=== PATIENT | male | born 1965 | race African-American/Black ===

== ENCOUNTER 2021-01-01 19:41 | Inpatient (IN) | payer BC, OTHER ==
[~2021-01-01] VITALS: Ht 177.8 cm; Wt 91.3 kg
[2021-01-01] MEDS ORDERED: METHYLPREDNISOLONE SOD SUCC 125 MG/2 ML VIAL IV STA (19:50)
[2021-01-01] MEDS ORDERED: SODIUM CHLORIDE 0.9% 1000ML BAG (SEPSIS BOLUS) IV ONE (20:00)
[2021-01-01] MEDS ORDERED: CEFTRIAXONE 1 G PREMIX 50 ML IV ONE (20:00)
[2021-01-01] MEDS ORDERED: MAGNESIUM 2 G PREMIX 50 ML IV ONE (20:00)
[2021-01-01] MEDS ORDERED: AZITHROMYCIN 500 MG in DEXT 5% WATER 250 ML IV ONE (20:00)
[2021-01-01] MEDS: IPRATROPIUM BROMIDE (0.02%) 0.5MG/2.5ML NEB HHN STA ×2 (20:07→20:08)
[2021-01-01] MEDS: ALBUTEROL (0.083%) 2.5MG/3ML NEB HHN STA ×2 (20:07→20:08)
[2021-01-01 20:39] LABS: BASOPHILS % 0.7 % (0.0-2.0); EOSINOPHILS % 0.3 % (0.0-5.0); HEMATOCRIT. 44.6 % (42.0-52.0); HEMOGLOBIN. 14.4 g/dL (14.0-18.0); LYMPHOCYTES % 13.9 % (20.0-50.0); MEAN CORPUSCULAR HEMOGLOBIN 29.3 pg (28.0-32.0); MEAN CORPUSCULAR VOLUME 90.8 fL (80.0-94.0); MEAN PLATELET VOLUME 9.9 fl (7.4-10.4); MONOCYTES % 8.3 % (2.0-8.0); NEUTROPHILS % 76.8 % (40.0-76.0); PLATELET 260 x1000/uL (130-400); RED BLOOD CELL COUNT 4.91 mill/uL (4.7-6.1); RED CELL DISTRIBUTION WIDTH 13.3 % (11.6-14.6)
[2021-01-01 20:47] LABS: CHLORIDE 103 mEq/L (98-107); D-DIMER 0.2 mg/L FEU (<0.50); INR 0.9
[2021-01-01] MEDS ORDERED: LORAZEPAM 2MG/ML CPJ IV ONE (21:15)
[2021-01-01 21:26] LABS: BG BASE EXCESS -2.3 mmol/L (-2.0-2.0); BG CARBOXYHEMOGLOBIN 0.7 % (0.5-1.5); BG DEOXYHEMOGLOBIN 1.5 % (0.0-5.0); BG FRACTION INSPIRED OXYGEN 100; BG HCO3 ACT 23.1 mmol/L (22.0-26.0); BG METHEMOGLOBIN 0.2 % (0.0-1.5); BG OXYGEN SATURATION 98.5 % (92.0-98.5); BG OXYHEMOGLOBIN 97.6 % (94.0-97.0); BG PCO2 42.1 mmHg (35.0-45.0); BG PH 7.357 (7.350-7.450); BG PO2 123.3 mmHg (75.0-100.0); BG SAMPLE SITE RIGHT RADIAL; BG TOTAL HEMOGLOBIN 14.8 g/dL (12.0-18.0); BG VENT MODE MASK - CPAP
[2021-01-01] MEDS ORDERED: LIDOCAINE HCL 1% 20ML VIAL (Pyxis) INJ INFIL ONE (21:45)
[2021-01-01] MEDS ORDERED: MORPHINE SULFATE 4 MG/ML CPJ (NOT FOR IM USE) IV STA (21:55)
[2021-01-01] MEDS ORDERED: ONDANSETRON HCL 4MG/2ML INJ IV STA (21:55)
[2021-01-01 22:16] LABS: CLARITY URINE CLEAR (CLEAR); COLOR URINE YELLOW (YELLOW); KETONES URINE NEGATIVE (NEGATIVE); LEUKOCYTE ESTERASE URINE NEGATIVE (NEGATIVE); NITRITE URINE NEGATIVE (NEGATIVE); OCCULT BLOOD URINE NEGATIVE (NEGATIVE); PROTEIN URINE 2+ (NEGATIVE); SPECIFIC GRAVITY URINE 1.018 (1.005-1.030); UROBILINOGEN URINE 0.2 E.U./dL (0.2-1.0)
[2021-01-01] MEDS ORDERED: MORPHINE SULFATE 4 MG/ML CPJ (NOT FOR IM USE) IV ONE (22:30)
[2021-01-01 23:00] VITALS: BP 140/89
[2021-01-01] MEDS ORDERED: IPRATROPIUM/ALBUTEROL 0.5-3(2.5)MG/3ML NEB HHN PRN (23:15)
[2021-01-01] MEDS ORDERED: MAGNESIUM/ALUMINUM HYDROXIDE/SIMETHICONE 30ML UDC PO PRN (23:15)
[2021-01-01] MEDS ORDERED: ENOXAPARIN 40MG/0.4ML SYR SUBCUT SCH (23:15)
[2021-01-01] MEDS ORDERED: CLONIDINE 0.1MG TABLET PO PRN (23:15)
[2021-01-01] MEDS ORDERED: ACETAMINOPHEN 325MG TABLET PO PRN (23:15)
[2021-01-02] VITALS (33 sets, daily range): BP systolic 125–171; BP diastolic 63–99
[2021-01-02] MEDS: HYDROCODONE/ACETAMINOPHEN 5/325MG TABLET PO PRN ×4 (00:15→22:35)
[2021-01-02] MEDS: MORPHINE SULFATE 2 MG/ML CPJ (NOT FOR IM USE) IV PRN ×4 (01:36→20:08)
[2021-01-02] MEDS: LORAZEPAM 2MG/ML CPJ IV PRN ×2 (03:55→17:25)
[2021-01-02 05:03] LABS: HEMATOCRIT. 41.6 % (42.0-52.0); HEMOGLOBIN. 13.2 g/dL (14.0-18.0); MEAN CORPUSCULAR HEMOGLOBIN 29.4 pg (28.0-32.0); MEAN CORPUSCULAR VOLUME 92.4 fL (80.0-94.0); MEAN PLATELET VOLUME 9.2 fl (7.4-10.4); PLATELET 222 x1000/uL (130-400); RED CELL DISTRIBUTION WIDTH 13.1 % (11.6-14.6)
[2021-01-02 05:12] LABS: CHLORIDE 103 mEq/L (98-107)
[2021-01-02] MEDS ORDERED: SODIUM CHLORIDE 0.9% INJ 3ML FLUSH IVF SCH (06:00)
[2021-01-02] MEDS ORDERED: NALOXONE HCL 0.4MG/ML VIAL IV PRN (08:30)
[2021-01-02] MEDS ORDERED: LORAZEPAM 2MG/ML CPJ IV SCH (09:45)
[2021-01-02] MEDS: AZITHROMYCIN 500 MG in DEXT 5% WATER 250 ML IV SCH (14:00)
[2021-01-02 14:45] LABS: PLATELET ESTIMATE NORMAL
[2021-01-02] MEDS: PSYLLIUM SEED PACKET PO SCH (20:42)
[2021-01-02] MEDS ORDERED: AZITHROMYCIN 500 MG in DEXT 5% WATER 250 ML IV SCH (23:00)
[2021-01-03] VITALS (14 sets, daily range): BP systolic 117–148; BP diastolic 52–89
[2021-01-03] MEDS: MORPHINE SULFATE 2 MG/ML CPJ (NOT FOR IM USE) IV PRN ×4 (00:13→21:21)
[2021-01-03] MEDS: LORAZEPAM 2MG/ML CPJ IV PRN ×4 (04:31→21:20)
[2021-01-03] MEDS: HYDROCODONE/ACETAMINOPHEN 5/325MG TABLET PO PRN (04:32)
[2021-01-03] MEDS: ENOXAPARIN 40MG/0.4ML SYR SUBCUT SCH ×2 (05:35→05:40)
[2021-01-03] MEDS: PSYLLIUM SEED PACKET PO SCH ×3 (09:30→17:23)
[2021-01-03] MEDS: DOCUSATE SODIUM 100MG CAPSULE PO PRN (09:48)
[2021-01-03 09:52] LABS: BASOPHILS % 0.2 % (0.0-2.0); EOSINOPHILS % 0.2 % (0.0-5.0); HEMATOCRIT. 43.6 % (42.0-52.0); HEMOGLOBIN. 13.9 g/dL (14.0-18.0); LYMPHOCYTES % 16.7 % (20.0-50.0); MEAN CORPUSCULAR HEMOGLOBIN 29.4 pg (28.0-32.0); MEAN CORPUSCULAR VOLUME 92.6 fL (80.0-94.0); MEAN PLATELET VOLUME 9.8 fl (7.4-10.4); MONOCYTES % 9.7 % (2.0-8.0); NEUTROPHILS % 73.2 % (40.0-76.0); PLATELET 208 x1000/uL (130-400); RED BLOOD CELL COUNT 4.71 mill/uL (4.7-6.1); RED CELL DISTRIBUTION WIDTH 12.9 % (11.6-14.6)
[2021-01-03 09:59] LABS: CHLORIDE 99 mEq/L (98-107)
[2021-01-03] MEDS: PANTOPRAZOLE 40MG DR TABLET PO SCH (10:03)
[2021-01-03] MEDS: AZITHROMYCIN 500 MG in DEXT 5% WATER 250 ML IV SCH (13:10)
[2021-01-03] MEDS: GUAIFENESIN 200MG/10ML SUGAR FREE UDC PO PRN (16:42)
[2021-01-03] MEDS: PREDNISONE 20MG TABLET PO SCH (17:24)
[2021-01-04] VITALS (16 sets, daily range): BP systolic 99–149; BP diastolic 61–93
[2021-01-04] MEDS: ENOXAPARIN 40MG/0.4ML SYR SUBCUT SCH ×2 (06:35→06:42)
[2021-01-04] MEDS: MORPHINE SULFATE 2 MG/ML CPJ (NOT FOR IM USE) IV PRN ×4 (06:36→22:00)
[2021-01-04 06:51] LABS: HEMATOCRIT. 42.9 % (42.0-52.0); HEMOGLOBIN. 13.8 g/dL (14.0-18.0); MEAN CORPUSCULAR HEMOGLOBIN 29.4 pg (28.0-32.0); MEAN CORPUSCULAR VOLUME 91.1 fL (80.0-94.0); MEAN PLATELET VOLUME 9.8 fl (7.4-10.4); PLATELET 227 x1000/uL (130-400); RED CELL DISTRIBUTION WIDTH 12.7 % (11.6-14.6)
[2021-01-04 06:52] LABS: CHLORIDE 98 mEq/L (98-107)
[2021-01-04] MEDS: PREDNISONE 20MG TABLET PO SCH ×2 (07:33→17:47)
[2021-01-04] MEDS: GUAIFENESIN 200MG/10ML SUGAR FREE UDC PO PRN (07:33)
[2021-01-04] MEDS: PANTOPRAZOLE 40MG DR TABLET PO SCH (07:33)
[2021-01-04] MEDS: LORAZEPAM 2MG/ML CPJ IV PRN ×4 (07:44→22:01)
[2021-01-04] MEDS: PSYLLIUM SEED PACKET PO SCH ×3 (09:20→17:00)
[2021-01-04] MEDS: AZITHROMYCIN 500 MG in DEXT 5% WATER 250 ML IV SCH (13:31)
[2021-01-04] MEDS: ONDANSETRON HCL 4MG/2ML INJ IV PRN (17:47)
[2021-01-04] MEDS: FAMOTIDINE 20MG TABLET PO SCH (20:51)
[2021-01-04] MEDS: DIPHENHYDRAMINE 50MG/ML VIAL IV PRN (22:01)
[2021-01-05] VITALS (18 sets, daily range): BP systolic 105–148; BP diastolic 61–82
[2021-01-05] MEDS: DIPHENHYDRAMINE 50MG/ML VIAL IV PRN ×2 (02:52→20:27)
[2021-01-05] MEDS: MORPHINE SULFATE 2 MG/ML CPJ (NOT FOR IM USE) IV PRN ×3 (02:54→20:27)
[2021-01-05] MEDS: FAMOTIDINE 20MG TABLET PO SCH ×2 (08:28→20:25)
[2021-01-05] MEDS: PSYLLIUM SEED PACKET PO SCH ×3 (08:28→17:31)
[2021-01-05] MEDS: PREDNISONE 20MG TABLET PO SCH ×2 (08:28→17:31)
[2021-01-05 09:17] LABS: PLATELET ESTIMATE NORMAL
[2021-01-05] MEDS: AZITHROMYCIN 500 MG in DEXT 5% WATER 250 ML IV SCH (12:24)
[2021-01-05] MEDS: ONDANSETRON HCL 4MG/2ML INJ IV PRN (13:43)
[2021-01-05] MEDS: GUAIFENESIN 200MG/10ML SUGAR FREE UDC PO PRN (23:55)
[2021-01-06] VITALS (12 sets, daily range): BP systolic 117–135; BP diastolic 63–81
[2021-01-06] MEDS: MORPHINE SULFATE 2 MG/ML CPJ (NOT FOR IM USE) IV PRN (02:05)
[2021-01-06] MEDS: ENOXAPARIN 40MG/0.4ML SYR SUBCUT SCH (06:00)
[2021-01-06] MEDS: PREDNISONE 20MG TABLET PO SCH ×2 (08:25→18:32)
[2021-01-06] MEDS: FAMOTIDINE 20MG TABLET PO SCH ×2 (08:25→20:36)
[2021-01-06] MEDS: PSYLLIUM SEED PACKET PO SCH ×3 (08:26→16:29)
[2021-01-06] MEDS: HYDROCODONE/ACETAMINOPHEN 5/325MG TABLET PO PRN ×2 (16:29→23:00)
[2021-01-06] MEDS ORDERED: MORPHINE SULFATE 4 MG/ML CPJ (NOT FOR IM USE) IV PRN (19:45)
[2021-01-06] MEDS: LORAZEPAM 2MG/ML CPJ IV PRN ×2 (23:00→23:25)
[2021-01-07] VITALS (43 sets, daily range): BP systolic 93–166; BP diastolic 41–130
[2021-01-07] MEDS: ENOXAPARIN 40MG/0.4ML SYR SUBCUT SCH (05:44)
[2021-01-07 05:52] LABS: PROTHROMBIN TIME 10.4 sec (9.6-11.0)
[2021-01-07 05:53] LABS: CHLORIDE 97 mEq/L (98-107)
[2021-01-07 06:27] LABS: BASOPHILS % 0.2 % (0.0-2.0); EOSINOPHILS % 0.1 % (0.0-5.0); HEMOGLOBIN. 13.6 g/dL (14.0-18.0); LYMPHOCYTES % 10.1 % (20.0-50.0); MEAN CORPUSCULAR HEMOGLOBIN 29.4 pg (28.0-32.0); MEAN CORPUSCULAR VOLUME 90.5 fL (80.0-94.0); MONOCYTES % 6.7 % (2.0-8.0); NEUTROPHILS % 82.9 % (40.0-76.0); PLATELET 229 x1000/uL (130-400); RED BLOOD CELL COUNT 4.64 mill/uL (4.7-6.1); RED CELL DISTRIBUTION WIDTH 12.4 % (11.6-14.6)
[2021-01-07] MEDS: HYDROCODONE/ACETAMINOPHEN 5/325MG TABLET PO PRN (06:37)
[2021-01-07] MEDS: PREDNISONE 20MG TABLET PO SCH ×2 (08:00→18:38)
[2021-01-07] MEDS: FAMOTIDINE 20MG TABLET PO SCH ×2 (08:12→20:08)
[2021-01-07] MEDS: VALACYCLOVIR HCL 500MG TABLET PO SCH (08:18)
[2021-01-07] MEDS: PSYLLIUM SEED PACKET PO SCH ×3 (09:00→18:38)
[2021-01-07] MEDS ORDERED: SKIN ADHESIVE 0.7 GM EA TOP ONE (10:11)
[2021-01-07] MEDS ORDERED: BUPIVACAINE HCL/PF 0.5% (5MG/ML) 10ML ONE ×2 (10:12→15:08)
[2021-01-07] MEDS ORDERED: BACITRACIN 50,000 UNITS/VIAL ONE (10:12)
[2021-01-07] MEDS ORDERED: GABAPENTIN 300MG CAPSULE PO SCH (11:15)
[2021-01-07] MEDS ORDERED: MORPHINE SULFATE/PF 1MG/ML 10ML AMP ONE (11:56)
[2021-01-07] MEDS ORDERED: DEXAMETHASONE 4MG/ML 1ML VIAL ONE (12:06)
[2021-01-07] MEDS ORDERED: ROCURONIUM BROMIDE 10MG/ML VIAL 5ML IV ONE (12:06)
[2021-01-07] MEDS ORDERED: CEFAZOLIN SODIUM 1000MG/VIAL ONE (12:07)
[2021-01-07] MEDS ORDERED: NEOSTIGMINE METHYLSULFATE 1MG/ML 10 ML VIAL ONE (14:53)
[2021-01-07] MEDS ORDERED: GLYCOPYRROLATE 0.2 MG/ML 2ML VIAL ONE (14:53)
[2021-01-07] MEDS ORDERED: ONDANSETRON HCL 4MG/2ML INJ IV PRN (15:30)
[2021-01-07] MEDS ORDERED: SODIUM CHLORIDE 0.9% 500 ML IV PRN (15:30)
[2021-01-07] MEDS ORDERED: ACETAMINOPHEN 325MG TABLET PO PRN (15:30)
[2021-01-07 15:54] LABS: BG BASE EXCESS 0.3 mmol/L (-2.0-2.0); BG CARBOXYHEMOGLOBIN 1.2 % (0.5-1.5); BG DEOXYHEMOGLOBIN 0.9 % (0.0-5.0); BG HCO3 ACT 29.6 mmol/L (22.0-26.0); BG METHEMOGLOBIN 0.5 % (0.0-1.5); BG OXYGEN SATURATION 99.1 % (92.0-98.5); BG OXYHEMOGLOBIN 97.4 % (94.0-97.0); BG PCO2 69.3 mmHg (35.0-45.0); BG PH 7.248 (7.350-7.450); BG PO2 171.1 mmHg (75.0-100.0); BG SAMPLE SITE ALINE; BG TOTAL HEMOGLOBIN 15.1 g/dL (12.0-18.0); BG VENT MODE MASK - SIMPLE
[2021-01-07] MEDS: DEXT 5%/0.45% NACL 1000ML 1,000 ML IV SCH (16:13)
[2021-01-07] MEDS ORDERED: KCL 10MEQ/50ML PREMIX 100 ML IV PRN (16:15)
[2021-01-07] MEDS ORDERED: KCL 10MEQ/50ML PREMIX 150 ML IV PRN (16:15)
[2021-01-07] MEDS ORDERED: KCL 10MEQ/50ML PREMIX 200 ML IV PRN (16:15)
[2021-01-07] MEDS: MAGNESIUM HYDROXIDE 400MG/5ML 30ML UDC PO SCH ×2 (17:31→20:08)
[2021-01-07] MEDS: DOCUSATE SODIUM 100MG CAPSULE PO SCH (17:31)
[2021-01-07] MEDS ORDERED: CEFAZOLIN 1000MG PREMIX 50 ML IV SCH (20:00)
[2021-01-07] MEDS: GUAIFENESIN 200MG/10ML SUGAR FREE UDC PO PRN (20:07)
[2021-01-07] MEDS: GABAPENTIN 100MG CAPSULE PO SCH (20:08)
[2021-01-07] MEDS: IPRATROPIUM/ALBUTEROL 0.5-3(2.5)MG/3ML NEB HHN SCH (20:47)
[2021-01-07] MEDS: CEFAZOLIN 1000MG PREMIX 50 ML IV SCH (21:40)
[2021-01-08] VITALS (37 sets, daily range): BP systolic 70–180; BP diastolic 35–99
[2021-01-08] MEDS: IPRATROPIUM/ALBUTEROL 0.5-3(2.5)MG/3ML NEB HHN SCH ×7 (00:29→23:44)
[2021-01-08] MEDS: ONDANSETRON HCL 4MG/2ML INJ IV PRN (03:54)
[2021-01-08] MEDS: LORAZEPAM 2MG/ML CPJ IV PRN ×2 (03:54→20:36)
[2021-01-08] MEDS: MAGNESIUM HYDROXIDE 400MG/5ML 30ML UDC PO SCH ×5 (04:24→16:00)
[2021-01-08] MEDS: GUAIFENESIN 200MG/10ML SUGAR FREE UDC PO PRN (04:24)
[2021-01-08] MEDS: DOCUSATE SODIUM 100MG CAPSULE PO PRN (04:24)
[2021-01-08] MEDS: CEFAZOLIN 1000MG PREMIX 50 ML IV SCH ×2 (04:25→11:47)
[2021-01-08] MEDS: ENOXAPARIN 40MG/0.4ML SYR SUBCUT SCH (06:00)
[2021-01-08 07:46] LABS: HEMATOCRIT. 42.7 % (42.0-52.0); HEMOGLOBIN. 13.8 g/dL (14.0-18.0); MEAN CORPUSCULAR HEMOGLOBIN 29.5 pg (28.0-32.0); MEAN CORPUSCULAR VOLUME 91.2 fL (80.0-94.0); MEAN PLATELET VOLUME 10.4 fl (7.4-10.4); PLATELET 246 x1000/uL (130-400); RED BLOOD CELL COUNT 4.68 mill/uL (4.7-6.1); RED CELL DISTRIBUTION WIDTH 12.4 % (11.6-14.6)
[2021-01-08 08:40] LABS: CHLORIDE 95 mEq/L (98-107)
[2021-01-08] MEDS: PREDNISONE 20MG TABLET PO SCH (08:54)
[2021-01-08] MEDS: DEXT 5%/0.45% NACL 1000ML 1,000 ML IV SCH (08:54)
[2021-01-08] MEDS: DOCUSATE SODIUM 100MG CAPSULE PO SCH ×2 (08:55→16:59)
[2021-01-08] MEDS: GABAPENTIN 100MG CAPSULE PO SCH ×2 (08:55→20:35)
[2021-01-08] MEDS: PSYLLIUM SEED PACKET PO SCH ×3 (08:55→16:59)
[2021-01-08] MEDS: FAMOTIDINE 20MG TABLET PO SCH ×2 (08:56→20:35)
[2021-01-08 09:35] LABS: PLATELET ESTIMATE NORMAL
[2021-01-08] MEDS: MORPHINE SULFATE 2 MG/ML CPJ (NOT FOR IM USE) IV PRN ×2 (11:03→16:59)
[2021-01-08] MEDS: VALACYCLOVIR HCL 500MG TABLET PO SCH (11:46)
[2021-01-08] MEDS: DIPHENHYDRAMINE 50MG/ML VIAL IV PRN (12:31)
[2021-01-09] VITALS (12 sets, daily range): BP systolic 106–143; BP diastolic 51–86
[2021-01-09] MEDS: MORPHINE SULFATE 2 MG/ML CPJ (NOT FOR IM USE) IV PRN ×3 (02:29→20:23)
[2021-01-09] MEDS: IPRATROPIUM/ALBUTEROL 0.5-3(2.5)MG/3ML NEB HHN SCH ×5 (03:59→20:00)
[2021-01-09] MEDS: ENOXAPARIN 40MG/0.4ML SYR SUBCUT SCH (06:00)
[2021-01-09 07:35] LABS: BASOPHILS % 0.3 % (0.0-2.0); EOSINOPHILS % 0.1 % (0.0-5.0); HEMATOCRIT. 37.5 % (42.0-52.0); HEMOGLOBIN. 12.2 g/dL (14.0-18.0); LYMPHOCYTES % 7.5 % (20.0-50.0); MEAN CORPUSCULAR HEMOGLOBIN 29.4 pg (28.0-32.0); MEAN CORPUSCULAR VOLUME 90.1 fL (80.0-94.0); MEAN PLATELET VOLUME 9.3 fl (7.4-10.4); MONOCYTES % 10.6 % (2.0-8.0); NEUTROPHILS % 81.5 % (40.0-76.0); PLATELET 200 x1000/uL (130-400); RED BLOOD CELL COUNT 4.16 mill/uL (4.7-6.1); RED CELL DISTRIBUTION WIDTH 12.2 % (11.6-14.6)
[2021-01-09 07:43] LABS: CHLORIDE 92 mEq/L (98-107)
[2021-01-09] MEDS: PREDNISONE 20MG TABLET PO SCH (08:25)
[2021-01-09] MEDS: GABAPENTIN 100MG CAPSULE PO SCH ×2 (08:25→20:22)
[2021-01-09] MEDS: FAMOTIDINE 20MG TABLET PO SCH ×2 (08:26→20:22)
[2021-01-09] MEDS: PSYLLIUM SEED PACKET PO SCH ×3 (09:02→16:28)
[2021-01-09] MEDS: DOCUSATE SODIUM 100MG CAPSULE PO SCH ×2 (09:02→16:28)
[2021-01-09] MEDS: VALACYCLOVIR HCL 500MG TABLET PO SCH (09:03)
[2021-01-09] MEDS: OXYCODONE HCL/ACETAMINOPHEN 5/325MG TABLET PO PRN ×2 (11:24→23:26)
[2021-01-09] MEDS: LORAZEPAM 2MG/ML CPJ IV PRN (22:12)
[2021-01-10] VITALS (12 sets, daily range): BP systolic 106–137; BP diastolic 55–93
[2021-01-10] MEDS: IPRATROPIUM/ALBUTEROL 0.5-3(2.5)MG/3ML NEB HHN SCH ×5 (00:50→21:23)
[2021-01-10] MEDS: MORPHINE SULFATE 2 MG/ML CPJ (NOT FOR IM USE) IV PRN ×3 (04:57→23:14)
[2021-01-10] MEDS: ENOXAPARIN 40MG/0.4ML SYR SUBCUT SCH (05:32)
[2021-01-10 06:29] LABS: CHLORIDE 93 mEq/L (98-107)
[2021-01-10 06:43] LABS: BASOPHILS % 0.3 % (0.0-2.0); EOSINOPHILS % 0.5 % (0.0-5.0); HEMATOCRIT. 37.1 % (42.0-52.0); HEMOGLOBIN. 12.1 g/dL (14.0-18.0); LYMPHOCYTES % 13.5 % (20.0-50.0); MEAN CORPUSCULAR HEMOGLOBIN 29.3 pg (28.0-32.0); MEAN CORPUSCULAR VOLUME 89.9 fL (80.0-94.0); MEAN PLATELET VOLUME 9.5 fl (7.4-10.4); NEUTROPHILS % 74.7 % (40.0-76.0); PLATELET 187 x1000/uL (130-400); RED BLOOD CELL COUNT 4.12 mill/uL (4.7-6.1); RED CELL DISTRIBUTION WIDTH 12.5 % (11.6-14.6)
[2021-01-10] MEDS: OXYCODONE HCL/ACETAMINOPHEN 5/325MG TABLET PO PRN ×3 (07:26→21:36)
[2021-01-10] MEDS: VALACYCLOVIR HCL 500MG TABLET PO SCH (08:48)
[2021-01-10] MEDS: DOCUSATE SODIUM 100MG CAPSULE PO SCH ×2 (08:48→17:10)
[2021-01-10] MEDS: FAMOTIDINE 20MG TABLET PO SCH ×2 (08:48→20:15)
[2021-01-10] MEDS: GABAPENTIN 100MG CAPSULE PO SCH ×2 (08:48→20:15)
[2021-01-10] MEDS: PREDNISONE 20MG TABLET PO SCH (08:48)
[2021-01-10] MEDS: PSYLLIUM SEED PACKET PO SCH ×3 (08:49→17:09)
[2021-01-10] MEDS: LORAZEPAM 2MG/ML CPJ IV PRN (20:15)
[2021-01-11] VITALS (12 sets, daily range): BP systolic 102–146; BP diastolic 55–119
[2021-01-11] MEDS: IPRATROPIUM/ALBUTEROL 0.5-3(2.5)MG/3ML NEB HHN SCH ×5 (00:43→19:57)
[2021-01-11] MEDS: OXYCODONE HCL/ACETAMINOPHEN 5/325MG TABLET PO PRN ×3 (02:25→22:29)
[2021-01-11] MEDS: ENOXAPARIN 40MG/0.4ML SYR SUBCUT SCH (06:00)
[2021-01-11 06:50] LABS: CHLORIDE 94 mEq/L (98-107)
[2021-01-11 06:51] LABS: BASOPHILS % 0.2 % (0.0-2.0); EOSINOPHILS % 0.8 % (0.0-5.0); HEMATOCRIT. 38.5 % (42.0-52.0); HEMOGLOBIN. 12.3 g/dL (14.0-18.0); LYMPHOCYTES % 13.8 % (20.0-50.0); MEAN CORPUSCULAR VOLUME 90.4 fL (80.0-94.0); MEAN PLATELET VOLUME 9.7 fl (7.4-10.4); MONOCYTES % 9.6 % (2.0-8.0); NEUTROPHILS % 75.6 % (40.0-76.0); PLATELET 221 x1000/uL (130-400); RED BLOOD CELL COUNT 4.26 mill/uL (4.7-6.1); RED CELL DISTRIBUTION WIDTH 12.4 % (11.6-14.6)
[2021-01-11] MEDS: DOCUSATE SODIUM 100MG CAPSULE PO SCH ×2 (08:24→16:06)
[2021-01-11] MEDS: FAMOTIDINE 20MG TABLET PO SCH ×2 (08:24→20:44)
[2021-01-11] MEDS: PREDNISONE 20MG TABLET PO SCH (08:24)
[2021-01-11] MEDS: GABAPENTIN 100MG CAPSULE PO SCH ×2 (08:24→20:44)
[2021-01-11] MEDS: PSYLLIUM SEED PACKET PO SCH ×3 (08:29→16:06)
[2021-01-11] MEDS: VALACYCLOVIR HCL 500MG TABLET PO SCH (08:29)
[2021-01-11] MEDS: LORAZEPAM 2MG/ML CPJ IV PRN ×2 (09:31→21:25)
[2021-01-11] MEDS: MORPHINE SULFATE 2 MG/ML CPJ (NOT FOR IM USE) IV PRN ×2 (11:32→14:27)
[2021-01-12] VITALS (12 sets, daily range): BP systolic 113–127; BP diastolic 52–97
[2021-01-12] MEDS: IPRATROPIUM/ALBUTEROL 0.5-3(2.5)MG/3ML NEB HHN SCH ×6 (04:00→21:22)
[2021-01-12] MEDS: ENOXAPARIN 40MG/0.4ML SYR SUBCUT SCH (05:53)
[2021-01-12] MEDS: OXYCODONE HCL/ACETAMINOPHEN 5/325MG TABLET PO PRN (07:39)
[2021-01-12] MEDS: VALACYCLOVIR HCL 500MG TABLET PO SCH (09:12)
[2021-01-12] MEDS: DOCUSATE SODIUM 100MG CAPSULE PO SCH ×2 (09:12→16:33)
[2021-01-12] MEDS: PSYLLIUM SEED PACKET PO SCH ×4 (09:12→16:33)
[2021-01-12] MEDS: PREDNISONE 20MG TABLET PO SCH (09:12)
[2021-01-12] MEDS: FAMOTIDINE 20MG TABLET PO SCH ×2 (09:12→21:52)
[2021-01-12] MEDS: GABAPENTIN 100MG CAPSULE PO SCH ×2 (09:13→21:53)
[2021-01-12] MEDS: LORAZEPAM 2MG/ML CPJ IV PRN (21:52)
[2021-01-13] VITALS (8 sets, daily range): BP systolic 95–139; BP diastolic 66–88
[2021-01-13] MEDS: IPRATROPIUM/ALBUTEROL 0.5-3(2.5)MG/3ML NEB HHN SCH ×3 (00:46→09:15)
[2021-01-13] MEDS: ENOXAPARIN 40MG/0.4ML SYR SUBCUT SCH (05:20)
[2021-01-13] MEDS ORDERED: OXYCODONE HCL/ACETAMINOPHEN 5/325MG TABLET PO PRN (08:15)
[2021-01-13] MEDS: GABAPENTIN 100MG CAPSULE PO SCH (08:18)
[2021-01-13] MEDS: PREDNISONE 20MG TABLET PO SCH (08:18)
[2021-01-13] MEDS: DOCUSATE SODIUM 100MG CAPSULE PO SCH (08:18)
[2021-01-13] MEDS: VALACYCLOVIR HCL 500MG TABLET PO SCH (08:19)
[2021-01-13] MEDS: FAMOTIDINE 20MG TABLET PO SCH (08:19)
[2021-01-13] MEDS: PSYLLIUM SEED PACKET PO SCH (08:19)
== END 2021-01-13 13:08 | disposition home health service (06) | DRG 163 ==
LOC: ER 19:51 → MICUNO 22:00 → EDBEDREQ 22:02 → EDBEDREQSVC 22:02 → EDBEDREQTM 22:02 → ENRESERV 22:35 → 5EST 01-03 01:33 → CVICU 01-07 14:55 → 3WST 01-08 14:05
PROVIDERS: ADMIT Internal Medicine; ATTEND Internal Medicine
PROC: 0W9930Z Drainage of Right Pleural Cavity with Drainage Device, Percutaneous Approach (ICD-10-PCS; 2021-01-01)
PROC: 5A09357 Assistance with Respiratory Ventilation, Less than 24 Consecutive Hours, Continuous Positive Airway Pressure (ICD-10-PCS; 2021-01-01)
PROC: 0B5N4ZZ Destruction of Right Pleura, Percutaneous Endoscopic Approach (ICD-10-PCS; principal; 2021-01-07)
PROC: 0BBC4ZZ Excision of Right Upper Lung Lobe, Percutaneous Endoscopic Approach (ICD-10-PCS; 2021-01-07)
PROC: 0W9940Z Drainage of Right Pleural Cavity with Drainage Device, Percutaneous Endoscopic Approach (ICD-10-PCS; 2021-01-07)
DX: J93.9 Pneumothorax, unspecified (principal); J96.00 Acute respiratory failure, unspecified whether with hypoxia or hypercapnia; R65.10 Systemic inflammatory response syndrome (SIRS) of non-infectious origin without acute organ dysfunction; E87.1 Hypo-osmolality and hyponatremia; E87.2 Acidosis; J98.2 Interstitial emphysema; D86.9 Sarcoidosis, unspecified; Z20.822 Contact with and (suspected) exposure to COVID-19; Z79.52 Long term (current) use of systemic steroids; Z88.0 Allergy status to penicillin
CPT/HCPCS: 36415; 36600; 71045; 71250; 73706; 80048; 80053; 81003; 82375; 82805; 83605; 83880; 84145; 84484; 85025; 85379; 86850; 86900; 87426; 88309; 88312; 93005; 94640; 94660; 97110; 97116; 97162; 97166; 99291; J0456; J0690; J0696; J1100; J1200; J1650; J2060; J2270; J2274; J2405; J2710; J2930; J3475; J3490; J7030; J7060; J7512